=== PATIENT | male | born 1990 | race Caucasian/White ===

== ENCOUNTER 2017-04-28 10:56 | Emergency (ER) | payer BC ==
[~2017-04-28] VITALS: Ht 180.3 cm; Wt 97.0 kg
[2017-04-28] MEDS ORDERED: IBUPROFEN 800 MG TABLET PO ONE (13:45)
[2017-04-28 14:09] VITALS: BP 117/78
== END 2017-04-28 14:11 | disposition home or self-care (01) ==
LOC: EMS 11:00
DX: R07.89 Other chest pain (principal); G89.29 Other chronic pain; F17.210 Nicotine dependence, cigarettes, uncomplicated
CPT/HCPCS: 71020; 99284

== ENCOUNTER 2019-03-17 17:31 | Emergency (ER) | payer BC ==
[~2019-03-17] VITALS: Ht 180.3 cm; Wt 102.3 kg
[2019-03-17] MEDS ORDERED: PERTUSS(ACELL),DIPH,TET VAC/PF 0.5 ML VIAL IM ONE (19:00)
[2019-03-17] MEDS ORDERED: ACETAMINOPHEN 325 MG TABLET PO ONE (19:00)
[2019-03-17] MEDS ORDERED: LIDOCAINE/PF 2% 5 ML VIAL INJ ONE (19:00)
[2019-03-17] MEDS ORDERED: CEPHALEXIN MONOHYDRATE 500 MG CAPSULE PO ONE (19:30)
[2019-03-17 20:01] VITALS: BP 126/86
[2019-03-17] MEDS ORDERED: BACITRACIN 0.9 GM PACKET OINTMENT TP ONE (20:30)
== END 2019-03-17 20:30 | disposition home or self-care (01) ==
LOC: EMS 17:31
DX: S61.211A Laceration without foreign body of left index finger without damage to nail, initial encounter (principal); F17.210 Nicotine dependence, cigarettes, uncomplicated; W45.8XXA Other foreign body or object entering through skin, initial encounter; Y93.89 Activity, other specified; Y92.89 Other specified places as the place of occurrence of the external cause; Y99.8 Other external cause status
CPT/HCPCS: 12001; 73130; 90471; 90715; 99283; 99406; J3490

== ENCOUNTER 2021-09-05 20:47 | Emergency (ER) | payer BC ==
[~2021-09-05] VITALS: Ht 180.3 cm; Wt 113.6 kg
[2021-09-05 21:55] VITALS: BP 145/86
[2021-09-05] MEDS ORDERED: FLUORESCEIN SODIUM 1 MG STRIP ONE (22:19)
[2021-09-05] MEDS ORDERED: PROPARACAINE HCL 0.5% 15 ML OPHTHALMIC SOLUTION ONE (22:19)
[2021-09-05] MEDS: TOBRAMYCIN/DEXAMETHASONE 3.5 GM OPHTHALMIC OINTMENT OD ONE (22:52)
[2021-09-05] MEDS: GENTAMICIN SULFATE 0.3% OPHTHALMIC SOLUTION 5 ML OD ONE (23:13)
== END 2021-09-05 23:14 | disposition home or self-care (01) ==
LOC: EMS 21:14
DX: T15.01XA Foreign body in cornea, right eye, initial encounter (principal); F17.210 Nicotine dependence, cigarettes, uncomplicated; W45.8XXA Other foreign body or object entering through skin, initial encounter; Y93.89 Activity, other specified; Y92.89 Other specified places as the place of occurrence of the external cause; Y99.8 Other external cause status
CPT/HCPCS: 65220; 99284; Z7502; Z7610

== ENCOUNTER 2021-10-30 14:13 | Emergency (ER) | payer BC ==
[~2021-10-30] VITALS: Ht 180.3 cm; Wt 113.6 kg
[2021-10-30] MEDS ORDERED: TAMS-13 PO (14:38)
[2021-10-30 15:03] LABS: APPEARANCE,URINE CLEAR (CLEAR); BILIRUBIN,URINE NEGATIVE (NEGATIVE); GLUCOSE, URINE (UA) NEGATIVE (NEGATIVE); KETONES,URINE TRACE mg/dL (NEGATIVE); LEUKOCYTE ESTERASE ,URINE NEGATIVE (NEGATIVE); NITRATE,URINE NEGATIVE (NEGATIVE); OCCULT BLOOD,URINE NEGATIVE (NEGATIVE); PROTEIN,URINE NEGATIVE (NEGATIVE)
[2021-10-30 15:06] LABS: BACTERIA,URINE None Seen /HPF (None Seen); RBC,URINE None Seen /HPF (0-2); WBC,URINE None Seen /HPF (0-5)
[2021-10-30 16:18] LABS: BASOPHILS % (AUTO) 0.6 % (0.0-2.0); EOSINOPHILS % (AUTO) 5.1 % (1.0-6.0); HEMATOCRIT 42.6 % (41-53); LYMPHOCYTES # (AUTO) 2.4 K/uL (1.0-4.8); LYMPHOCYTES % (AUTO) 23.4 % (22.0-44.0); MEAN CORPUSCULAR HEMOGLOBIN 31.2 pg (26.0-34.0); MEAN CORPUSCULAR HGB CONC 35.1 G/dL (31.0-37.0); MEAN CORPUSCULAR VOLUME 89 fL (80-100); MONOCYTES # (AUTO) 0.8 K/uL (0.1-1.0); MONOCYTES % (AUTO) 7.8 % (2.0-9.0); NEUTROPHILS # (AUTO) 6.5 K/uL (1.8-7.7); NEUTROPHILS % (AUTO) 63.1 % (40.0-70.0); PLATELET COUNT (AUTO) 168 K/uL (150-450); RED CELL DISTRIBUTION WIDTH 12.3 % (11.5-14.5)
[2021-10-30 16:39] LABS: ANION GAP 14 mmol/L (8-16); CALCIUM, TOTAL 8.9 mg/dL (8.8-10.5); CARBON DIOXIDE 25 mmol/L (22-29); CHLORIDE 107 mmol/L (98-107); CREATININE 1.01 mg/dL (0.60-1.30); GLOMERULAR FILTR. RATE CALC > 60 mL/min (>60); GLUCOSE,RANDOM 127 mg/dL (70-110); POTASSIUM 3.7 mmol/L (3.5-5.1); SODIUM SERUM 146 mmol/L (136-145); UREA NITROGEN, BLOOD 17 mg/dL (7-18)
[2021-10-30 16:45] LABS: ALANINE AMINOTRANSFERASE 57 U/L (12-78); ALBUMIN 3.9 g/dL (3.4-5.0); ALKALINE PHOSPHATASE 63 U/L (46-116); ASPARTATE AMINOTRANSFERASE 23 U/L (15-37); BILIRUBIN,TOTAL 0.3 mg/dL (0.1-1.0); LIPASE 54 U/L (73-393); TOTAL PROTEIN, SERUM 6.9 g/dL (6.4-8.2)
[2021-10-30] MEDS ORDERED: IBUP-1554 PO (17:27)
[2021-10-30 17:37] VITALS: BP 139/81
== END 2021-10-30 17:38 | disposition home or self-care (01) ==
LOC: EMS 14:15
DX: N20.0 Calculus of kidney (principal); F17.210 Nicotine dependence, cigarettes, uncomplicated
CPT/HCPCS: 74176; 76870; 80053; 81001; 83690; 85025; 99284